=== PATIENT | female | born 1940 | race Caucasian/White ===

== ENCOUNTER 2016-10-26 22:04 | Emergency (ER) | payer OTHER ==
--- NOTE | 2016-10-26 22:16 | UCPHY ---
H & P Patient Type: Established HPI/ROS: CHIEF COMPLAINT: Left index finger erythema and swelling. HISTORY OF PRESENT ILLNESS: The patient is a 76-year-old female who presents with an area of erythema and swelling on the tip of her left index finger. She reports that she has had a bump there for 2 years but in the past couple of days it has swelled and become red. It is sore to the touch. She denies puncture wounds or any known foreign bodies. No fever, lethargy, shortness of breath, chest pain, or other complaints. REVIEW OF SYSTEMS: Constitutional - no fevers or chills Musculoskeletal - no joint or muscle pain. Integument - no rashes or wounds Neurological - no numbness, tingling, or paresthesias. Past Medical/Surgical History: Depression. Social History: Nonsmoker. Smoking Status: Never smoked Physical Exam: General Appearance: Alert, no distress. Afebrile. Extremities: At the distal phalanx of the left index there is indeed a raised area with erythematous base of what appears to be a clear large coli which fairly thick horny covering. It does not appear to be overtly fragile. It is tender to the touch. She notes quite a bit larger than it was before, nor was not tender nor was it erythematous. There is no lymphangitis. Range of motion is normal. The rest the hand has stigmata of moderate Heberdan nodes Neurological: NV intact. Skin: Skin is intact. Warm and dry, no rashes. no lymphangitis. Constitutional: Initial Vital Signs Temperature (C) 36.3 C 10/26/16 22:16 Heart Rate 69 10/26/16 22:16 Respiratory Rate 18 10/26/16 22:16 Blood Pressure 129/83 H 10/26/16 22:16 O2 Sat (%) 93 10/26/16 22:16 O2 Delivery Mode Room Air Allergies/Adverse Reactions: No Known Allergies Allergy (Verified 03/16/15 22:21) Home Medications: Medication Instructions Recorded Metoprolol Succinate 11/03/13 Nortriptyline HCl [Pamelor 25 mg 11/03/13 (*)] PARoxetine HCL [Paxil 10mg (*)] 11/03/13 Lipitor 03/16/15 Betamethasone Radha 0.1% 15 ana TP TID PRN #15 cream 10/26/16 [Betamethasone Radha 0.1% (*)] Cephalexin [Keflex (*)] 500 mg PO TID #21 cap 10/26/16 Medical Decision Making ED Course/Re-evaluation: I discussed treatment options with the patient. I suggested antibiotic. At the same token warned to the inflammation may need to come back for I and D. However she would like to have this removed. She has elected for incision and drainage of the swelling. Procedure: Digital block performed utilizing sterile technique [with 1% lidocaine]. Sterile technique Chlorhexidine prep The base of the lesion was incised and out came a rather clear fluid of straining nature. The lesion was removed in total. Estimated blood loss negligible Patient tolerated the procedure well. With these above findings I believe this is due Stephanie Node related to her osteoarthritis and expect complete recovery and short-term. Differential Diagnosis: Diagnostic considerations include, but are not limited to, the following: Cellulitis, abscess, inflammatory reaction of the base of the Stephanie node - Data Points Medications Given: Discontinued Medications Cephalexin (Keflex 500 Mg Prepack#4) 1 btl TAKEHOME EDNOW ONE PRN Reason: Protocol Stop: 10/26/16 23:14 Last Admin: 10/26/16 23:30 Dose: 1 btl Departure - Departure Disposition: Home, Routine, Self-Care Clinical Impression: Cellulitis of finger of left hand Condition: Good Instructions: Cephalexin (By mouth), Cellulitis (ED) Additional Instructions: Take the antibiotic as prescribed. Apply Valisone to the rash on the back of the left wrist. You need to soak this digit 3 times daily for the next 3 days. Continue wear a bulky dressing so as to catch any whose or drainage the next few days. You can follow up with Dr. Talbert, hand surgery, in the next few weeks if you have continued concerns. Return for fever, red streaks up your hand, worsening pain, or any other worsening of condition. Referrals: Joellen Nolasco MD [Primary Care Provider] - As per Instructions Sage Talbert MD [Medical Doctor] - As per Instructions Prescriptions: Betamethasone Radha 0.1% [Betamethasone Radha 0.1% (*)] 15 ana TP TID PRN #15 cream PRN Reason: Rash Cephalexin [Keflex (*)] 500 mg PO TID #21 cap - PQRS PQRS Measurement: 134: Depression screening and followup, PRIME MD-PHQ2 (12 years and older) Over the last 2 weeks, how often have you been bothered by any of the following problems? 1. Feeling down, depressed, or hopeless? 2. Little interest or pleasure in doing things? [Patient answered no to both 1 and 2] [Patient answered yes to at least 1, referred to PCP for further evaluation.] [Not done because] [altered mental status] [patient refused] [critically ill.] 130: Documentation of medications. [Reviewed all patient medications, doses, route and frequency.] [Unable to obtain meds due to] [critical illness] [altered mental status] [ patient did not know]. 226: Do you smoke? [No.] [Yes, counseled to stop.] 47: 65 and older: Advanced care planning. Patient designates surrogate decision maker as [parent] [spouse] [ ]. [Patient refused.] [Patient has advanced directive.] 51: 18 years old and older with diagnosis of COPD, spirometry performance. [Patient has no history of COPD] [Spirometry not performed; equipment not available.] 52: 18 years old and older with COPD and symptoms of COPD or FEV1<60% predicted prescribed a B Agonist. [Patient has no history of COPD] [Spirometry not performed; equipment not available.] Report Scribed for: Humphrey Nicholson Report Scribed by: Davion Alexis Date of Report: 10/26/16 Time of Report: 22:16 Physician Review and Approval Statement: 10/26/16 22:16 Portions of this note were transcribed by a medical library assistant. I personally performed a history, physical exam, medical decision making, and confirmed accuracy of information the transcribed note.
[2016-10-26 22:20] VITALS: BP 129/83; PULSE 69; RESP 18; TEMP 97.3; O2SAT 93
[2016-10-26] MEDS ORDERED: CEPHALEXIN 500MG PREPACK#4 BTL TAKEHOME ONE (23:13)
== END 2016-10-26 23:39 | disposition home or self-care (01) ==
LOC: CED 22:04
DX: L03.012 Cellulitis of left finger (principal)
CPT/HCPCS: G0463-PO

== ENCOUNTER 2017-03-12 23:23 | Emergency (ER) | payer OTHER ==
[2017-03-12 23:43] VITALS: BP 119/74; PULSE 71; RESP 16; TEMP 98.1; O2SAT 96
--- NOTE | 2017-03-12 23:45 | EDPHY ---
H & P Time Seen by Provider: 03/12/17 23:34 HPI/ROS: This patient reports noticing a bump in her left upper arm over the past 24 hours the concerns for possible skin cancer. She explains that she is not sure if she has noticed a mole there are not the past but the appears slightly discolored irregular in terms of that shaped. She read literature that stated she should come immediately to have a skin lesion evaluated if there is concern of possible skin cancer so she arrives for evaluation. She denies any other dermatologic symptoms. She reports no pain associated with this or itching. No recent trauma to the area. No other complaints. ROS: No fevers. No other constitutional symptoms Integumentary: No other skin lesions or complaints 5 point ROS is otherwise negative Smoking Status: Never smoked Physical Exam: Physical Exam Vital signs are normal. General: No acute distress Eyes: Pupils equal and react to light. Extraocular motions are intact. Cardiac: Brisk capillary refill is intact throughout. Skin: No rash or pallor. Patient has a mole to the left triceps region of the upper arm that is proximal 1 cm in size-raised brown papule consistent with a benign nevus but with overlying crusty skin with slight darker brown discoloration that appears most consistent with actinic keratosis. This extends from skin adjacent to the nevus. No significant hyperpigmentation other might be slight pigmentation to this overlying [place] Neuro: Alert with no sensorimotor deficits. Initial differential diagnosis: Actinic keratosis, squamous cell cancer, benign nevus, doubt melanoma Constitutional: Initial Vital Signs Temperature (C) 36.7 C 03/12/17 23:40 Heart Rate 71 03/12/17 23:40 Respiratory Rate 16 03/12/17 23:40 Blood Pressure 119/74 03/12/17 23:40 O2 Sat (%) 96 03/12/17 23:40 O2 Delivery Mode Room Air Allergies/Adverse Reactions: No Known Allergies Allergy (Verified 03/12/17 23:28) Home Medications: Medication Instructions Recorded Metoprolol Succinate 11/03/13 Nortriptyline HCl [Pamelor 25 mg 11/03/13 (*)] PARoxetine HCL [Paxil 10mg (*)] 11/03/13 Lipitor 03/16/15 MDM/Departure - MDM ED Course/Re-evaluation: Discussion: Findings are most consistent with a benign nevus with associated actinic keratosis but given subtle mild pigmentation, patient warrants follow- up with [employer] architect for further evaluation. Explain this to her in some detail. - Depart Disposition: Home, Routine, Self-Care Clinical Impression: Arm skin lesion, left Condition: Good Instructions: Actinic Keratosis (ED) Additional Instructions: Diagnosis: Skin lesion of left arm Your skin lesion appears most consistent with a mole with overlying actinic keratosis. However, there does appear to be very slight pigmentation to it and this warrants further evaluation by the microsoft architect. Plan: Call your micro[employer] architect arrange a follow-up appointment. Try to be seen within the next 2 weeks. Return for any significant changes prior to then or worsening. Referrals: Patient,NotPresent [Unknown] - As per Instructions
== END 2017-03-12 23:51 | disposition home or self-care (01) ==
LOC: CED 23:23
DX: L98.9 Disorder of the skin and subcutaneous tissue, unspecified (principal)

== ENCOUNTER 2018-02-18 21:43 | Emergency (ER) | payer OTHER ==
[2018-02-18 21:55] VITALS: BP 120/85
[2018-02-18] MEDS ORDERED: CEPHALEXIN 500 MG CAP PO ONE (22:20)
--- NOTE | 2018-02-18 22:23 | EDPHY ---
H & P Time Seen by Provider: 02/18/18 21:47 HPI/ROS: This patient has a complaint of left 5th toe pain and redness. She explains that she developed a"[place]"-lump to the medial aspect of the toe over the past week and treated it with some Dr. Ayobu's medicine [id number]. She is not sure within that but points to a blister-like lesion to the medial aspect of the toe with associated circumferential erythema and swelling. Pain worsens with movement of the toe. ROS: No acute trauma to the toe or other musculoskeletal complaints Constitutional: No fevers Musculoskeletal: No other extremity pains. Integumentary: No other skin rash or lesions. 5 point ROS is otherwise negative. Past Medical/Surgical History: Hypertension Hypercholesterolemia Otherwise healthy Smoking Status: Never smoked Physical Exam: Physical Exam Vital signs are normal. General: No acute distress Eyes: Pupils equal and react to light. Extraocular motions are intact. Lungs: No respiratory distress. Cardiac: Brisk capillary refill is intact throughout. Pulses are 2+ and symmetric in the affected extremity. Skin: No rash or pallor. Extremities: Atraumatic normal except for left 5th toe Left 5th toe: Patient has circumferential swelling-mild with confluent erythema warmth to touch tenderness and will 8 mm round lesion of dry skin in the medial aspect of the toe without fluctuance. No bony tenderness. She retains full range of motion. Neuro: Alert and oriented x3 with no sensorimotor deficits. Initial differential diagnosis: Toe cellulitis, do not appreciate evidence of abscess, fungal infection Constitutional: Initial Vital Signs Temperature (C) 36.6 C 02/18/18 21:54 Heart Rate 83 02/18/18 21:54 Respiratory Rate 18 02/18/18 21:54 Blood Pressure 120/85 H 02/18/18 21:54 O2 Sat (%) 95 02/18/18 21:54 O2 Delivery Mode Room Air Allergies/Adverse Reactions: No Known Allergies Allergy (Verified 03/12/17 23:28) Home Medications: Medication Instructions Recorded Metoprolol Succinate 11/03/13 Nortriptyline HCl [Pamelor 25 mg 11/03/13 (*)] PARoxetine HCL [Paxil 10mg (*)] 11/03/13 Lipitor 03/16/15 Cephalexin [Keflex (*)] 500 mg PO TID #21 cap 02/18/18 MDM/Departure - MDM Medications Given: Keflex p.o. ED Course/Re-evaluation: Keflex p. O. Toes clean. Counseled patient regarding toe cellulitis with plan to do a some salt soaks, Keflex and follow up with Podiatry if not improving - Depart Disposition: Home, Routine, Self-Care Clinical Impression: Cellulitis, toe Qualifiers: Laterality: left Qualified Code(s): L03.032 - Cellulitis of left toe Condition: Good Instructions: Cellulitis (ED) Additional Instructions: Diagnosis: Cellulitis left 5th toe Plan: Epsom salt soaks to 3 times a day Ibuprofen Tylenol for pain if needed Keflex antibiotic Follow up with Podiatry for any ongoing symptoms despite the treatment plan Prescriptions: Cephalexin [Keflex (*)] 500 mg PO TID #21 cap Referrals: Kiana Martinez, DPM [Doctor of Podiatric Medicine] - As per Instructions
== END 2018-02-18 22:43 | disposition home or self-care (01) ==
LOC: CED 21:43
DX: L03.032 Cellulitis of left toe (principal); I10 Essential (primary) hypertension

== ENCOUNTER 2018-02-19 15:20 | Emergency (ER) | payer OTHER ==
[2018-02-19] MEDS ORDERED: IBUPROFEN 800 MG TAB PO ONE (15:37)
[2018-02-19] MEDS ORDERED: LET GEL TOPICAL 1 EA SYR TP ONE (15:38)
--- NOTE | 2018-02-19 15:41 | EDPHY ---
H & P Time Seen by Provider: 02/19/18 15:27 HPI/ROS: CHIEF COMPLAINT: Left toe pain HISTORY OF PRESENT ILLNESS: The patient is a 77-year-old female who complains of recurrent corns to the medial aspect of her left little toe. She states that it typically resolves with [id number] corn remover patches. She does not see a peripheral vascular tech. She was seen here yesterday and returns today however because this episode seems to be more painful than typical. She is requesting a topical numbing medicine. She has not had a fever. She denies any trauma. No open wounds. Yesterday she was prescribed Keflex which she does not feel that she needs. She does not think that it is infected. REVIEW OF SYSTEMS: Constitutional: denies: chills, fever, recent illness, recent injury EENTM: denies: blurred vision, double vision, nose congestion Respiratory: denies: cough, shortness of breath Cardiac: denies: chest pain, irregular heart rate, lightheadedness, palpitations Gastrointestinal/Abdominal: denies: abdominal pain, diarrhea, nausea, vomiting, blood streaked stools Genitourinary: denies: dysuria, frequency, hematuria, pain Musculoskeletal: denies: joint pain, muscle pain Skin: See HPI Neurological: denies: headache, numbness, paresthesia, tingling, dizziness, weakness Hematologic/Lymphatic: denies: blood clots, easy bleeding, easy bruising Immunologic/allergic: denies: HIV/AIDS, transplant EXAM: GENERAL: Well-appearing, well-nourished and in no acute distress. HEAD: Atraumatic, normocephalic. EYES: Pupils equal round and reactive to light, extraocular movements intact, sclera anicteric, conjunctiva are normal. ENT: TMs normal, nares patent, oropharynx clear without exudates. Moist mucous membranes. NECK: Normal range of motion, supple without lymphadenopathy or JVD. LUNGS: Breath sounds clear to auscultation bilaterally and equal. No wheezes rales or rhonchi. HEART: Regular rate and rhythm without murmurs, rubs or gallops. ABDOMEN: Soft, nontender, normoactive bowel sounds. No guarding, no rebound. No masses appreciated. BACK: No CVA tenderness, no spinal tenderness, step-offs or deformities EXTREMITIES: Normal range of motion, no pitting or edema. No clubbing or cyanosis. NEUROLOGICAL: Cranial nerves II through XII grossly intact. Normal speech, normal gait. 5/5 strength, normal movement in all extremities, normal sensation PSYCH: Normal mood, normal affect. SKIN: Patient has a small try firm corn to the medial aspect of her left little toe. The toe is slightly erythematous which she says is baseline. No purulence. No tenderness. Source: Patient Exam Limitations: No limitations - Personal History Tetanus Vaccine Date: 08/2006 - Medical/Surgical History Hx Asthma: No Hx Chronic Respiratory Disease: No Hx Diabetes: No Hx Cardiac Disease: Yes Hx Renal Disease: No Hx Cirrhosis: No Hx Alcoholism: No Hx HIV/AIDS: No Hx Splenectomy or Spleen Trauma: No Other PMH: depression, SVT, high cholesterol - Family History Significant Family History: No pertinent family hx - Social History Smoking Status: Never smoked Alcohol Use: Sober Drug Use: None Constitutional: Initial Vital Signs Temperature (C) 36.4 C 02/19/18 15:29 Heart Rate 83 02/19/18 15:29 Respiratory Rate 18 02/19/18 15:29 Blood Pressure 164/93 H 02/19/18 15:29 O2 Sat (%) 91 L 02/19/18 15:29 O2 Delivery Mode Room Air Allergies/Adverse Reactions: No Known Allergies Allergy (Verified 02/19/18 15:33) Home Medications: Medication Instructions Recorded Metoprolol Succinate 11/03/13 Nortriptyline HCl [Pamelor 25 mg 11/03/13 (*)] PARoxetine HCL [Paxil 10mg (*)] 11/03/13 Lipitor 03/16/15 Cephalexin [Keflex (*)] 02/19/18 Ibuprofen 800 mg PO TID PRN #20 tablet 02/19/18 Medical Decision Making ED Course/Re-evaluation: The patient does appear to have a small corn. She is requesting pain control with topical creams. We discussed that this will have limited utility especially she has a patch over it. We also discussed oral [id number] pain medications. I will treat her with ibuprofen and LET cream. She has not filled her antibiotic prescriptions and does not think she needs it. We discussed symptoms to watch for that would be signs of infection and she will fill her prescription at that time. She was also referred to a peripheral vascular tech yesterday. I reaffirmed that she should follow up with the peripheral vascular tech. Differential Diagnosis: Partial list of the Differential diagnosis considered include but were not limited to; corn, infection, abscess, cellulitis and although unlikely based on the history and physical exam, I also considered fracture, osteomyelitis, diabetic wound. I discussed these differential diagnoses and the plan with the patient as well as the usual and expected course. The patient understands that the diagnosis is provisional and that in medicine we are not always correct and that further workup is often warranted. Usual and customary warnings were given. All of the patient's questions were answered. The patient was instructed to return to the emergency department should the symptoms at all worsen or return, otherwise to followup with the physician as we discussed. - Data Points Medications Given: Discontinued Medications Ibuprofen (Motrin) 800 mg PO EDNOW ONE Stop: 02/19/18 15:38 Last Admin: 02/19/18 16:00 Dose: 800 mg Tetracaine/Epinephrine/Lidocaine (Let Gel Topical) 1 ea TP EDNOW ONE Stop: 02/19/18 15:39 Last Admin: 02/19/18 16:00 Dose: 1 ea Departure - Departure Disposition: Home, Routine, Self-Care Clinical Impression: [place] of toe Condition: Fair Instructions: Ibuprofen (By mouth) Referrals: Joellen Nolasco MD [Primary Care Provider] - As per Instructions Kiana Martinez DPM [Doctor of Podiatric Medicine] - As per Instructions Prescriptions: Ibuprofen 800 mg PO TID PRN #20 tablet PRN Reason: *Pain, Inflammatory
[2018-02-19 16:21] VITALS: BP 151/79
== END 2018-02-19 16:07 | disposition home or self-care (01) ==
LOC: CED 15:20
DX: L84 Corns and callosities (principal)

== ENCOUNTER 2018-07-29 21:40 | Emergency (ER) | payer OTHER ==
--- NOTE | 2018-07-29 22:31 | EDPHY ---
H & P Stated Complaint: DOUBLE VISION X 2 DAYS. NO NUMBNESS OR TINGLING. Time Seen by Provider: 07/29/18 21:50 HPI/ROS: CHIEF COMPLAINT: Double vision HISTORY OF PRESENT ILLNESS: The patient is a 78-year-old female who comes to the emergency department complaining of vertical double vision over the couple days. She really noticed it tonight when she looked out of her window at home she saw 2 zeina lines. She noticed some trouble writing 2 days ago but did not think much of it. She has no trouble speaking or moving. No focal weakness. No recent infections. No recent trauma. She does not drink. No headaches. No dizziness. No nausea vomiting. Severity: Moderate Modifying factors: None REVIEW OF SYSTEMS: Constitutional: denies: chills, fever, recent illness, recent injury EENTM: See HPI Respiratory: denies: cough, shortness of breath Cardiac: denies: chest pain, irregular heart rate, lightheadedness, palpitations Gastrointestinal/Abdominal: denies: abdominal pain, diarrhea, nausea, vomiting, blood streaked stools Genitourinary: denies: dysuria, frequency, hematuria, pain Musculoskeletal: denies: joint pain, muscle pain Skin: denies: lesions, rash, jaundice, bruising Neurological: denies: headache, numbness, paresthesia, tingling, dizziness, weakness Hematologic/Lymphatic: denies: blood clots, easy bleeding, easy bruising Immunologic/allergic: denies: HIV/AIDS, transplant 10 systems reviewed and negative except as noted EXAM: GENERAL: Well-appearing, well-nourished and in no acute distress. HEAD: Atraumatic, normocephalic. EYES: Pupils equal round and reactive to light, extraocular movements intact with very slight nystagmus, sclera anicteric, conjunctiva are normal. Patient states that she sees double in the extremes of looking either right or left or up or down. No obvious ptosis. She does have some correction in the left eye when it is uncovered. Normal appearing retina. Each eye is individually able to visualize the eye chart at baseline but when she looks with both eyes has trouble reading 20/100. ENT: TMs normal, nares patent, oropharynx clear without exudates. Moist mucous membranes. NECK: Normal range of motion, supple without lymphadenopathy or JVD. LUNGS: Breath sounds clear to auscultation bilaterally and equal. No wheezes rales or rhonchi. HEART: Regular rate and rhythm without murmurs, rubs or gallops. ABDOMEN: Soft, nontender, normoactive bowel sounds. No guarding, no rebound. No masses appreciated. BACK: No CVA tenderness, no spinal tenderness, step-offs or deformities EXTREMITIES: Normal range of motion, no pitting or edema. No clubbing or cyanosis. NEUROLOGICAL: Cranial nerves II through XII grossly intact. Normal speech, normal gait. 5/5 strength, normal movement in all extremities, normal sensation , normal reflexes NIH stroke scale 0. PSYCH: Normal mood, normal affect. SKIN: Warm, dry, normal turgor, no visible rashes or lesions. Source: Patient Exam Limitations: No limitations - Personal History Current Tetanus Diphtheria and Acellular Pertussis (TDAP): Unsure Tetanus Vaccine Date: 08/2006 - Medical/Surgical History Hx Asthma: No Hx Chronic Respiratory Disease: No Hx Diabetes: No Hx Cardiac Disease: Yes Hx Renal Disease: No Hx Cirrhosis: No Hx Alcoholism: No Hx HIV/AIDS: No Hx Splenectomy or Spleen Trauma: No Other PMH: depression, SVT, high cholesterol - Family History Significant Family History: No pertinent family hx - Social History Smoking Status: Never smoked Alcohol Use: Sober Drug Use: None Constitutional: Initial Vital Signs Temperature (C) 36.9 C 07/29/18 21:45 Heart Rate 75 07/29/18 21:45 Respiratory Rate 16 07/29/18 21:45 Blood Pressure 172/98 H 07/29/18 21:45 O2 Sat (%) 92 07/29/18 21:45 O2 Delivery Mode Room Air Allergies/Adverse Reactions: No Known Allergies Allergy (Verified 02/19/18 15:33) Home Medications: Medication Instructions Recorded Metoprolol Succinate 11/03/13 Nortriptyline HCl [Pamelor 25 mg 11/03/13 (*)] PARoxetine HCL [Paxil 10mg (*)] 11/03/13 Lipitor 03/16/15 Medical Decision Making ED Course/Re-evaluation: 10:30 p.m. I spoke with Dr. Mares from Ophthalmology. We discussed possible etiologies. He would like to follow up with her in the office over the next few days. He states that it is not emergent. I discussed this with the patient and she is agreeable with this plan. I told her return to the emergency department if she developed any focal weakness or deficits or headaches or fevers etc. She declines further observation or testing at this time. Differential Diagnosis: Partial list of the Differential diagnosis considered include but were not limited to; diplopia, nerve palsy, MS, tumor, migraine, myasthenia gravis and although unlikely based on the history and physical exam, I also considered seizure, CVA, dissection. I discussed these differential diagnoses and the plan with the patient as well as the usual and expected course. The patient understands that the diagnosis is provisional and that in medicine we are not always correct and that further workup is often warranted. Usual and customary warnings were given. All of the patient's questions were answered. The patient was instructed to return to the emergency department should the symptoms at all worsen or return, otherwise to followup with the physician as we discussed. Departure - Departure Disposition: Home, Routine, Self-Care Clinical Impression: Diplopia Condition: Fair Instructions: Diplopia (ED) Referrals: Junior Martino MD [Medical Doctor] - 1-2 days without fail
[2018-07-29 23:00] VITALS: BP 166/90
== END 2018-07-29 23:00 | disposition home or self-care (01) ==
LOC: CED 21:40
DX: H53.2 Diplopia (principal)